=== PATIENT | female | born 1975 | race Caucasian/White ===

== ENCOUNTER 2022-03-14 18:28 | Emergency (ER) | payer SELFPAY ==
[~2022-03-14] VITALS: Ht 162.6 cm; Wt 54.4 kg
[2022-03-14 18:39] VITALS: BP 109/62
[2022-03-14 18:40] VITALS: BP 119/63
--- NOTE | 2022-03-14 19:25 | NUR ---
pt yelling in lobby, security on stand by.
--- NOTE | 2022-03-14 19:33 | NUR ---
pt offered lab draw, pt refused. pt given food per request.
--- NOTE | 2022-03-14 19:34 | NUR ---
pt taken to rad via w/c
[2022-03-14 20:09] LABS: BASOPHILS % (AUTO) 0.4 % (0.0-2.0); EOSINOPHILS % (AUTO) 0.7 % (0.0-4.0); HEMATOCRIT 32.5 % (36-48); HEMOGLOBIN 10.2 g/dL (12.0-16.0); LYMPHOCYTES # (AUTO) 1.6 K/uL (2.5-16.5); LYMPHOCYTES % (AUTO) 23.2 % (20.5-51.1); MEAN CORPUSCULAR HEMOGLOBIN 23 pg (27-31); MEAN CORPUSCULAR HGB CONC 31 g/dL (33-37); MEAN CORPUSCULAR VOLUME 72.4 fL (80-94); MONOCYTES # (AUTO) 0.7 K/uL (0.8-1.0); MONOCYTES % (AUTO) 9.7 % (1.7-9.3); NEUTROPHILS # (AUTO) 4.6 K/uL (1.8-7.7); PLATELET COUNT (AUTO) 341 K/uL (140-450); RED BLOOD CELL COUNT(AUTO) 4.49 MIL/uL (4.20-5.40)
[2022-03-14 20:28] LABS: ANION GAP 11.6 (8-16); CARBON DIOXIDE 28.1 mmol/L (21-32); CHLORIDE 104 mmol/L (98-107); CREATININE 0.6 mg/dL (0.6-1.3); GFR ARICAN-AMERICAN 140 mL/min (>90); GLUCOSE 102 mg/dL (74-106); POTASSIUM 3.7 mmol/L (3.5-5.1); SODIUM SERUM 140 mmol/L (136-145); UREA NITROGEN, BLOOD 16 mg/dL (7-18)
[2022-03-14 20:34] LABS: ALBUMIN 3.1 g/dL (3.4-5.0); ASPARTATE AMINOTRANSFERASE 31 U/L (15-37); TOTAL BILIRUBIN 0.2 mg/dL (0.0-1.0)
[2022-03-14 20:36] LABS: SALICYLATE < 2.8 mg/dL (2.8-20.0)
[2022-03-14 20:38] LABS: ACETAMINOPHEN < 0.5 ug/ml (10-30)
[2022-03-14 20:54] VITALS: BP 119/63
--- NOTE | 2022-03-14 20:54 | NUR ---
Patient discharged with v/s stable. Written and verbal after care instructions given and explained. Patient verbalized understanding. Wheel Chair Assisted with to lobby. All questions addressed prior to discharge. Advised to follow up with PMD.
--- NOTE | 2022-03-14 21:01 | NUR ---
pt requesting uber but is giving address to [place] for an uber. pt made aware. other addresses provided are non exsistent.
--- NOTE | 2022-03-14 21:07 | NUR ---
pt's mom stated she is unable to steel pickler pt. states pt is on drugs. states theyve been trying to pick her up but ends up leaving the area. mom does not understnd how she got here from [place]. pt made aware.
--- NOTE | 2022-03-14 21:14 | NUR ---
homeless packet provided to pt. unable to provide transport pt will wait in lobby.
== END 2022-03-14 20:54 | disposition home or self-care (01) ==
LOC: MED 18:28
DX: F09 Unspecified mental disorder due to known physiological condition (principal); T40.5X5A Adverse effect of cocaine, initial encounter; R45.1 Restlessness and agitation; F11.90 Opioid use, unspecified, uncomplicated; D50.9 Iron deficiency anemia, unspecified; F17.200 Nicotine dependence, unspecified, uncomplicated; Z89.511 Acquired absence of right leg below knee; Z59.00 Homelessness unspecified; Y92.89 Other specified places as the place of occurrence of the external cause
CPT/HCPCS: 36415; 71045; 80053; 85025; 99284; G0480; G0482